=== PATIENT | female | born 1960 ===

== ENCOUNTER 2019-05-02 06:00 | Day surgery (SDC) | payer OTHER ==
[~2019-05-02 06:00] MED LIST: BACTRIM DS TABL1 TAB PO; TENORMIN25 MG PO; ULTRACET PO; VASOTEC10 MG NGT
== END 2019-05-02 09:10 | disposition home or self-care (01) ==
LOC: AMB-ENDOS 06:00
DX: K64.2 Third degree hemorrhoids (principal)

== ENCOUNTER 2023-06-26 05:54 | Day surgery (SDC) | payer OTHER ==
[~2023-06-26] VITALS: Ht 165.1 cm; Wt 88.0 kg
[~2023-06-26 05:54] MED LIST changes: +ATIVAN2 M1 PO; +COZAAR50 MG PO; +TOPROL XL25 M1 PO; +VYTORIN 10-101 EACH PO; +XALATAN; +[UNRECOGNIZED DRUG - CODE] PO; +[UNRECOGNIZED DRUG - OTHER]
[2023-06-26] MEDS ORDERED: TRAM1TAB98 PO (11:57)
[2023-06-26] MEDS ORDERED: NEURONTIN300 MG PO (11:57)
[2023-06-26] MEDS ORDERED: PERCOCET 5-3251 EACH PO (12:40)
== END 2023-06-26 13:35 | disposition home or self-care (01) ==
LOC: CIR.AMB 05:54
PROVIDERS: ATTEND Surgery
DX: R15.9 Full incontinence of feces (principal); K58.0 Irritable bowel syndrome with diarrhea; K64.2 Third degree hemorrhoids; K31.84 Gastroparesis; Z20.822 Contact with and (suspected) exposure to COVID-19; I10 Essential (primary) hypertension; Z88.0 Allergy status to penicillin
CPT/HCPCS: 64581; 64590; 95972; C1767; C1778